=== PATIENT | male | born 1995 | race African-American/Black ===

== ENCOUNTER 2020-11-03 09:59 | Emergency (ER) | payer SELFPAY ==
[~2020-11-03] VITALS: Ht 167.6 cm; Wt 77.3 kg
[2020-11-03 10:12] VITALS: TEMP 98.1
[2020-11-03] MEDS ORDERED: PRIL40 PO (10:28)
[2020-11-03] MEDS ORDERED: PEPCID 20MG TAB20 MG PO (10:43)
[2020-11-03 10:49] VITALS: BP 134/88; PULSE 64
== END 2020-11-03 10:49 | disposition home or self-care (01) ==
LOC: COL.ER 09:59
DX: K64.9 Unspecified hemorrhoids (principal); K21.9 Gastro-esophageal reflux disease without esophagitis; Z87.891 Personal history of nicotine dependence; Z91.14 Patient's other noncompliance with medication regimen

== ENCOUNTER → 2021-06-21 | Outpatient (CLI) | payer OTHER ==
[~2021-06-21] MED LIST: PEPCID 20MG TAB20 MG PO; PRIL40 PO
== END ==
LOC: COL.RAD 09:19
DX: M25.561 Pain in right knee (principal)